=== PATIENT | male | born 1940 ===

== ENCOUNTER 2022-04-19 12:44 | Emergency (ER) | payer SELFPAY ==
[2022-04-19] MEDS ORDERED: Sodium Chloride 0.9% 10 ML Syringe FLUSH PRN (13:04)
[2022-04-19] MEDS ORDERED: Ondansetron 4 MG/2 ML SDV IVPUSH ONE (13:27)
[2022-04-19] MEDS ORDERED: Meclizine 12.5 MG Tab PO ONE (13:27)
[2022-04-19 13:48] LABS: ANION GAP 14.5 mEq/L (7-13)
[2022-04-19] MEDS ORDERED: Iopamidol 755 Mg/ML 100 ML Bottle IVPUSH ONE (14:10)
== END 2022-04-19 17:15 | disposition home or self-care (01) ==
LOC: DL.ED 12:44
DX: N30.01 Acute cystitis with hematuria (principal); Z20.822 Contact with and (suspected) exposure to COVID-19; Z88.6 Allergy status to analgesic agent; Z88.8 Allergy status to other drugs, medicaments and biological substances
CPT/HCPCS: 36415; 70450; 70496; 70498; 80053; 81001; 83735; 85025; 85610; 87086; 87635; 93005; 96374; 99284; A9270; J2405; J3490; Q9967; U0002